=== PATIENT | female | born 1970 | race Caucasian/White ===

== ENCOUNTER 2020-08-07 07:42 | Outpatient (RCR) | payer BC, SELFPAY ==
--- NOTE | 2020-08-07 08:51 | PTOPEVAL ---
PHYSICAL THERAPY EVALUATION AND PLAN OF CARE 08-07-20 Thank you for referring Neha Swartz to [facility].? After the shoulder injection, she has decreased pain. Neha is independent with her home exercises and is not having any issues at this time. She is to call if she has any questions, or if there are changes and she needs to schedule an appointment for treatment. She is scheduled to be seen for therapy? 0-2 x/week for 4 weeks. Please review, sign, date and return this plan of care LIVE. I agree with and certify that the following plan of care is medically necessary. Referring Physician Date Attending Provider: Luiz Pires MD *PT Outpatient Evaluation Document 08/07/20 08:00 NIEVES (Rec: 08/07/20 08:51 NIEVES [id number]) Outpatient Past Medical History Past Medical History Source of Past Medical History Patient Neurological History Hx Neurological Disorders No Significant History Cardiovascular History Hx Cardiac Disorders No Significant History Respiratory History Hx Respiratory Disorders No Significant History Gastrointestinal History Hx Gastrointestinal Disorders No Significant History Genitourinary History Hx Genitourinary Disorders No Significant History Musculoskeletal History Hx Other Musculoskeletal Disorders Yes: R lateral epicondylitis;R knee arthritis; Endocrine History Hx Endocrine Disorders No Significant History HEENT History Hx HEENT Disorders No Significant History Evaluation Information Problem Diagnosis L shoulder pain/impingement Onset Apr 2020 Subjective Information gradual increase in shoulder Query Text:As Reported By Patient/ pain with reaching overhead/ Family no injury or trauma to shoulder; had injection 07-22-20 and pain is less since it; Diagnostic Tests X-Rays For This Problem Yes: mild GH joint and A-C OA; marginal GH spurs; Previous Treatments Previous Treatments For This Problem no PT for shoulder Prior Level of Function Activity Level (Last 3 Months) Occupation computer and phone tasks- working from home due to pandemic Hand Dominance Right Activity of Daily Living Ability Independent Indoor/Home Mobility Independent Community Mobility Independent Stairs Ability Independent Functional Cognition (Planning, Shopping Independent , Taking Medications) Cooking Yes Cleaning Yes Laundry Yes Shopping Yes Driving Yes Medications Home Meds (Include: OTC, RX, Vitamins, meloxicam for knee and Herbals, Dose, Route,and Frequency) shoulder pain; an
--- NOTE | 2020-09-08 13:02 | PCPTNOTE ---
PHYSICAL THERAPY DISCHARGE 09-08-20 Attending Provider: Luiz Pires MD Patient:Neha Swartz Date of :1970 Ms. Swartz has not returned for any further treatments since the PT evaluation on 08/07/2020, therefore she will be discharged at this time. At the evaluation, her L shoulder pain was less and she was issued/educated on a home exercise program. Neha did not call for any further appointments for therapy. Thank you for referring Neha to [facility]. Please review, sign, date and return this discharge summary LIVE. I have been updated about the patient's current status and I agree with discharge from the above service at this time. Referring Physician Date
== END 2020-09-09 10:23 | disposition home or self-care (01) ==
LOC: ANHPT 07:42
PROVIDERS: PCP Family Medicine; Visit Provider Orthopaedic Surgery
DX: M75.42 Impingement syndrome of left shoulder (principal)
CPT/HCPCS: 97161

== ENCOUNTER → 2020-09-18 14:17 | Outpatient (CLI) | payer BC, SELFPAY ==
--- NOTE | ~2020-09-18 | MM_ITS ---
EXAMINATION: MM screening terrell BI w iwona HISTORY: Screening TECHNIQUE: Craniocaudal and mediolateral oblique 3-D tomosynthesis images were obtained and synthetic 2-D images were generated. CAD analysis was submitted and interpreted. COMPARISON: No prior mammogram is available for comparison at this institution. BREAST PARENCHYMAL COMPOSITION: There are scattered areas of fibroglandular density. FINDINGS: There is no evidence of suspicious mass, calcification, or architectural distortion to sugg est malignancy in either breast. There has been no suspicious interval change. IMPRESSION: 1. No mammographic evidence of malignancy. 2. Recommend routine screening mammography in one year. BI-RADS Category 1: Negative Reviewed, dictated and finalized at location A. R LAB TECHNICIAN
== END ==
PROVIDERS: Visit Provider Obstetrics & Gynecology
DX: Z12.31 Encounter for screening mammogram for malignant neoplasm of breast (principal)
CPT/HCPCS: 77063; 77067

== ENCOUNTER → 2020-09-26 14:12 | Outpatient (CLI) | payer BC, SELFPAY ==
--- NOTE | ~2020-09-26 | US_ITS ---
EXAMINATION:US venous doppler LE BI INDICATION:Leg edema TECHNIQUE: Multiple grayscale, color flow and Doppler images of the bilateral lower extremity deep ve nous systems were obtained and reviewed. COMPARISON:No prior studies for comparison. FINDINGS: The common femoral, superficial femoral and popliteal veins demonstrate normal respiratory variation, augmentation and compressibility. Color flow is also seen within the posterior tibial, pe roneal, greater saphenous and profunda veins. There is a Renteria's cyst measuring 5 x 3.2 x 1.7 cm righ t popliteal fossa. IMPRESSION: 1: No lower extremity deep venous thrombosis. Reviewed, dictated and finalized at location A. CAMP UNIT LEADER
== END ==
PROVIDERS: Visit Provider Physician Assistant
DX: R60.0 Localized edema (principal)
CPT/HCPCS: 93970

== ENCOUNTER → 2022-04-08 09:39 | Outpatient (CLI) | payer BC, SELFPAY ==
--- NOTE | ~2022-04-08 | XR_ITS ---
XR sacrum coccyx min 2V DATE: 04/08/2022 10:01 INDICATION: Right hip pain TECHNIQUE: AP, angled AP and lateral views of sacrum and coccyx COMPARISON: None FINDINGS: No fracture or dislocation, erosive change or ankylosis is noted at the sacroiliac joints. The pubic symphysis is intact. No sacral or coccygeal fracture or bone destruction is detected.. Joint spaces are symmetric and rela tively preserved. IMPRESSION: No significant abnormality Reviewed, dictated and finalized at location B. IMPRESSION: No significant abnormality
--- NOTE | ~2022-04-08 | XR_ITS ---
XR lumbar spine 2-3V DATE: 04/08/2022 10:01 INDICATION: Low back and tailbone pain for 4 weeks TECHNIQUE: AP, lateral, coned lateral lumbosacral views COMPARISON: None FINDINGS: There is minimal dextroscoliosis. Normal alignment of the lumbar spine. No fracture or bone destruction or spondylolisthesis. The lumbar pedicles are intact. There is mild degenerative spurring primarily at L3-4 and to a lesser extent L4-5. Lumbar and lumbosa cral interspaces are relatively well preserved. The sacral iliac joints are intact. IMPRESSION: Minimal dextro scoliosis Minimal degenerative spurring Reviewed, dictated and finalized at location B.
--- NOTE | ~2022-04-08 | XR_ITS ---
XR hip BI 2V w AP pelvis DATE: 04/08/2022 10:01 INDICATION: Right hip TECHNIQUE: AP pelvis. AP and lateral views of each hip. COMPARISON: None FINDINGS: No pelvic fracture or bone destruction. Normal alignment at the pubic symphysis and sacroil iac joints. No fracture or dislocation, avascular necrosis or bone destruction of either hip. Hip joint spaces ap pear symmetric and well preserved. IMPRESSION: No significant abnormality Reviewed, dictated and finalized at location B. IMPRESSION: No significant abnormality
== END ==
PROVIDERS: PCP Family Medicine; Visit Provider Physician Assistant
DX: M54.50 Low back pain, unspecified (principal); M53.3 Sacrococcygeal disorders, not elsewhere classified; M25.551 Pain in right hip
CPT/HCPCS: 72100; 72220; 73521

== ENCOUNTER 2025-03-13 12:07 | Outpatient (CLI) | payer OTHER, SELFPAY ==
--- NOTE | ~2025-03-13 | MM_ITS ---
EXAMINATION: MM screening terrell BI w iwona HISTORY: Screening TECHNIQUE: Craniocaudal and mediolateral oblique 3-D tomosynthesis images were obtained and synthetic 2-D images were generated. CAD analysis was submitted and interpreted. COMPARISON: 09/18/2020 BREAST PARENCHYMAL COMPOSITION: There are scattered areas of fibroglandular density. FINDINGS: There is no evidence of suspicious mass, calcification, or architectural distortion to suggest malignancy in either breast. IMPRESSION: 1. No mammographic evidence of malignancy. 2. Recommend routine screening mammography in one year. BI-RADS Category 1: Negative Reviewed, dictated and finalized at location B.
== END 2025-03-13 12:08 | disposition home or self-care (01) ==
LOC: MICIMG 12:09
PROVIDERS: PCP Family Medicine; Visit Provider Nurse Practitioner Obstetrics & Gynecology
DX: Z12.31 Encounter for screening mammogram for malignant neoplasm of breast (principal)
CPT/HCPCS: 77063; 77067